=== PATIENT | female | born 2000 | race Caucasian/White ===

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

== ENCOUNTER 2022-09-01 10:14 | Emergency (ER) | payer BC, MEDICAID ==
[2022-09-01] MEDS ORDERED: ZOFRAN ODT 4 MG PO ONE (10:32)
[2022-09-01 10:48] LABS: ADD URINE CULTURE? YES (NO); Appearance Turbid (Clear); Bacteria Many /HPF (None Seen); Bilirubin Negative (Negative); Blood Small (Negative); Epithelial Cells Few /HPF (None Seen); Glucose, Urine Negative (Negative); Hyaline Casts NONE SEEN /LPF (0-2); Ketones Trace (Negative); Leukocyte Esterase Large (Negative); Nitrite Positive (Negative); Ph 6.5 (4.6-8.0); Protein,Urine Dip 100 (Negative); Specific Gravity 1.015 (1.005-1.030); WBC >100 /HPF (0-5)
[2022-09-01] MEDS ORDERED: Rocephin 1000 MG INJ IM ONE (11:15)
--- NOTE | 2022-09-01 11:17 | ERPHSYRPT ---
- History of Present Illness Time Seen by Provider: 09/01/22 10:20 Source: patient Exam Limitations: no limitations Patient Subjective Stated Complaint: Pt c/o of vomiting for the past 3 days Triage Nursing Assessment: Pt brought to the ER by her mother, tachycardic, hypertensive, rates pain in her lower abdomen as 4/10, vomiting for the past 3 days, no difficulty breathing, denies diarrhea, no edema, skin n/w/d, pulses normal, doesn't appear to be in any distress Physician History: Patient is a 21-year-old female presents to our emergency department for evaluation of vomiting for 3 days. Patient has some lower abdominal pain. No vaginal discharge. Patient is on control and believes she is not . No trauma. No fever. No back pain. Symptoms are mild to moderate in intensity. No specific worsening or improving factors. Patient voices no other complaints or concerns. Portions of this note were created with voice recognition technology. There may be grammatical, spelling, punctuation or sound alike errors Timing/Duration: day(s) (3 days) Severity: moderate Modifying Factors: Improves With: nothing Associated Symptoms: nausea, vomiting Allergies/Adverse Reactions: No Known Drug Allergies Allergy (Verified 09/01/22 10:40) Home Medications: Norelgestromin/Ethin.estradiol [Zafemy 150-35 Mcg/Day Patch] 1 each TD WEEKLY 09/01/22 [History] Hx Tetanus, Diphtheria Vaccination/Date Given: Yes Hx Influenza Vaccination/Date Given: No Hx Pneumococcal Vaccination/Date Given: No Travel Risk - International Travel Have you traveled outside of the country in past 3 weeks: No - Coronavirus Screening Are you exhibiting any of the following symptoms?: Yes Symptoms: Vomiting/Diarrhea Close contact with a COVID-19 positive Pt in past 14-21 Days: No - Vaccine Status Have you recieved a Covid-19 vaccination: No - Review of Systems Constitutional: No Symptoms, No Fever, No Chills Eyes: No Symptoms Ears, Nose, & Throat: No Symptoms Respiratory: No Symptoms, No Cough, No Dyspnea Cardiac: No Symptoms, No Chest Pain, No Edema, No Syncope Abdominal/Gastrointestinal: No Symptoms, No Abdominal Pain, No Nausea, No Vomiting, No Diarrhea Genitourinary Symptoms: No Symptoms, No Dysuria Musculoskeletal: No Symptoms, No Back Pain, No Neck Pain Skin: No Symptoms, No Rash Neurological: No Symptoms, No Dizziness, No Focal Weakness, No Sensory Changes Psychological: No Symptoms Endocrine: No Symptoms Hematologic/Lymphatic: No Symptoms Immunological/Allergic: No Symptoms All Other Systems: Reviewed and Negative - Past Medical History Pertinent Past Medical History: No - Past Surgical History Past Surgical History: Yes Other Surgical History: TONSILS - Social History Smoking Status: Never smoker Exposure to second hand smoke: No Drug Use: marijuana Patient Lives Alone: No - Female History Hx Last Menstrual Period: 08/23/2022 Hx Now: No - Nursing Vital Signs Nursing Vital Signs: Initial Vital Signs Temperature 98.4 F 09/01/22 10:18 Pulse Rate 117 H 09/01/22 10:18 Blood Pressure 145/93 09/01/22 10:18 O2 Sat by Pulse Oximetry 98 09/01/22 10:18 Pain Scale Pain Intensity 0 - Physical Exam General Appearance: no apparent distress, alert Eye Exam: PERRL/EOMI, eyes nml inspection Ears, Nose, Throat Exam: normal ENT inspection, TMs normal, pharynx normal, moist mucous membranes Neck Exam: normal inspection, non-tender, supple, full range of motion Respiratory Exam: normal breath sounds, lungs clear, airway intact, No respiratory distress Cardiovascular Exam: regular rate/rhythm, normal heart sounds, normal peripheral pulses Gastrointestinal/Abdomen Exam: soft, normal bowel sounds, other (Suprapubic tenderness), No tenderness, No mass Back Exam: normal inspection, normal range of motion, No CVA tenderness, No vertebral tenderness Extremity Exam: normal inspection, normal range of motion, pelvis stable Neurologic Exam: alert, oriented x 3, cooperative, normal mood/affect, nml cer ebellar function, nml station & gait, sensation nml, No motor deficits Skin Exam: normal color, warm, dry, No rash Lymphatic Exam: No adenopathy SpO2 Interpretation: normal SpO2: 98 O2 Delivery: Room Air - Course Nursing assessment & vital signs reviewed: Yes - CT Exams Abdomen/Pelvis CT Interpretation: Tele-radiologist Report (Negative CT abdomen pelvis without contrast) Ordered Tests: Active Orders 24 hr Category Date Time Status ABDOMEN AND PELVIS W/0 CONTRAS [CT] Stat Exams 09/01/22 11:16 Completed CULTURE,URINE Stat Lab 09/01/22 10:39 Received HCG,QUALITATIVE URINE Stat Lab 09/01/22 10:39 Completed UA W/RFX UR CULTURE Stat Lab 09/01/22 10:39 Completed Medication Summary Discontinued Medications Generic Name Dose Route Start Last Admin Trade Name Aleisha PRN Reason Stop Dose Admin Ceftriaxone Sodium 1,000 mg 09/01/22 11:15 09/01/22 11:42 Ceftriaxone Sodium 1000 Mg Inj Vial IM 09/01/22 11:16 1,000 mg STAT ONE Administration Ceftriaxone Sodium Confirm 09/01/22 11:39 Ceftriaxone Sodium 1000 Mg Inj Vial Administered 09/01/22 11:40 Dose 1,000 mg .ROUTE .STK-MED ONE Lidocaine HCl Confirm 09/01/22 11:39 Lidocaine Hcl 1% 20 Ml Mdv 20 Ml Ml Administered 09/01/22 11:40 Dose 3 ml .ROUTE .STK-MED ONE Ondansetron HCl 4 mg 09/01/22 10:32 09/01/22 11:42 Zofran 4 Mg/Udtablet Orally Disintegrating PO 09/01/22 10:33 4 mg STAT ONE Administration Ondansetron HCl Confirm 09/01/22 11:39 Zofran 4 Mg/Udtablet Orally Disintegrating Administered 09/01/22 11:40 Dose 4 mg .ROUTE .STK-MED ONE Lab/Rad Data: Laboratory Results 09/01/22 09/01/22 Range/Units 10:39 10:39 Urine Color Yellow (Yellow) Urine Appearance Turbid A (Clear) Urine pH 6.5 (4.6-8.0) Ur Specific [place] 1.015 (1.005-1.030) Urine Protein 100 A (Negative) Urine Glucose (UA) Negative (Negative) mg/dL Urine Ketones Trace A (Negative) Urine Blood Small A (Negative) Urine Nitrite Positive A (Negative) Urine Bilirubin Negative (Negative) Urine Urobilinogen 1.0 A (0.2) mg/dL Ur Leukocyte Esterase Large A (Negative) U Hyaline Cast (Auto) NONE SEEN (0-2) /LPF Urine Microscopic RBC 3-5 (0-5) /HPF Urine Microscopic WBC >100 A (0-5) /HPF Ur Epithelial Cells Few (None Seen) /HPF Urine Bacteria Many A (None Seen) /HPF Urine Culture Reflexed YES (NO) Urine HCG, Qual NEGATIVE (Negative) - Progress Progress: improved Progress Note: Patient is a 21-year-old female presents emergency department for evaluation of nausea and vomiting. Patient has some lower abdominal suprapubic pain on physical examination. CT abdomen pelvis essentially nonremarkable. hCG negative. UA positive for urinary tract infection. Patient received a dose of Rocephin intramuscularly in our ED. Patient received Zofran and ODT for nausea. Patient tolerated p.o. No indication for further work-up. Vital stable. A prescription for Keflex was forwarded to patient's pharmacy. Patient agrees to follow-up with her primary care doctor within 48 hours. Portions of this note were created with voice recognition technology. There may be grammatical, spelling, punctuation or sound alike errors Patient's complaint is acute. Complexity of problems addressed is moderate. Lower abdominal pain complicated by nausea and vomiting decreased p.o. No critical care time. Complexity of data reviewed and analyzed is moderate. Test ordered. Test reviewed. Patient served as independent historian however mother at bedside contributed significantly to HPI. Urinalysis was independently reviewed and deemed consistent with a urinary tract infection.. Risk of complications and or risk morbidity/mortality of patient management is moderate. Patient received a intramuscular dose of Rocephin, ODT Zofran. A prescription for Keflex forwarded to patient's pharmacy. Plan of care determined based on shared decision-making model. Time for discharge is approximately 10 minutes. Vital stable. Patient voices no other complaints or concerns at this time. Portions of this note were created with voice recognition technology. There may be grammatical, spelling, punctuation or sound alike errors 09/01/22 13:03 Counseled pt/family regarding: lab results, diagnosis, rad results - Departure Departure Disposition: Home Clinical Impression: UTI (urinary tract infection) Condition: Stable Critical Care Time: No Referrals: CHANCE RITTER [Primary Care Provider] - Follow up/PCP as directed Additional Instructions: Discharge/Care Plan CHIKI LOVEVANE JOVI was seen on 09/01/22 in the Emergency Room. The patient was counseled regarding Diagnosis,Lab results, Imaging studies, need for follow up and when to return to the Emergency Room. Prescriptions given: Discharge Note I have spoken with the patient and/or caregivers. I have explained the patient's condition, diagnosis and treatment plan based on the information available to me at this time. I have answered the patient's and/or caregiver's questions and addressed any concerns. The patient and/or caregivers have as good understanding of the patient's diagnosis, condition and treatment plan as can be expected at this point. The vital signs have been stable. The patient's condition is stable and appropriate for discharge from the emergency department. The patient will pursue further outpatient evaluation with the primary care physician or other designated or consulting physician as outlined in the discharge instructions. The patient and/or caregivers are agreeable to this plan of care and follow-up instructions have been explained in detail. The patient and/or caregivers have received these instruction. The patient/and or caregivers are aware that any significant change in condition or worsening of symptoms should prompt an immediate return to this or the closest emergency department or call 911. Prescriptions: Cephalexin Mh 500 mg [Keflex 500 mg] 500 mg PO TID #21 cap
[2022-09-01] MEDS ORDERED: Rocephin 1000 MG INJ ONE (11:39)
[2022-09-01] MEDS ORDERED: XYLOCAINE 1% HCL 20 ML MDV ONE (11:39)
[2022-09-01] MEDS ORDERED: ZOFRAN ODT 4 MG ONE (11:39)
[2022-09-01 11:56] VITALS: BP 124/85; PULSE 100
--- NOTE | 2022-09-01 12:32 | XRAY ---
Indication: Vomiting 3 days. Abdomen pain. Multiple contiguous axial images obtained through the abdomen and pelvis without contrast. Comparison: None Lung bases clear. Heart not enlarged. Noncontrasted stomach and bowel loops appear nonobstructed with normal appendix. No free fluid/air. Remaining liver, gallbladder, pancreas, spleen, adrenal glands, kidneys, ureters, bladder, uterus, and aorta are unremarkable for noncontrast exam. Osseous structures intact. No ventral or inguinal hernias. Right gluteal subcutaneous opacity with emphysema presumed iatrogenic from injection. Impression: Negative CT abdomen/pelvis without contrast exam.
[2022-09-01 13:00] VITALS: O2SAT 98
== END 2022-09-01 13:17 | disposition home or self-care (01) ==
LOC: ED 10:14
DX: N39.0 Urinary tract infection, site not specified (principal); R11.2 Nausea with vomiting, unspecified; R10.30 Lower abdominal pain, unspecified; Z28.310 Unvaccinated for COVID-19
CPT/HCPCS: 74176; 81001; 81025; 87077; 87086; 87186; 96372; 99283; J0696; Q0162